=== PATIENT | female | born 1985 | race Caucasian/White ===

== ENCOUNTER 2019-04-21 20:30 | Emergency (ER) | payer OTHER ==
[~2019-04-21] VITALS: Ht 160 cm; Wt 72.6 kg
[~2019-04-21 20:30] MED LIST: AMOXICILLIN PO; BENTYL20 MG PO; CARAFATE1 GM/10 ML PO; IBUPROFEN 400400 M1; MYLANTA 12 OZ355 M1; NOHOMEMEDICATIONS; PRENATAL; PRENATAL PO; TESSALON PERLE100 MG; ZANTAC 150MG T150 M1
[2019-04-21 20:31] VITALS: BP 147/99
[2019-04-21] MEDS ORDERED: ZPAK PO (21:54)
[2019-04-21] MEDS ORDERED: TESSALON PERLE100 MG PO (21:54)
== END 2019-04-21 22:16 | disposition home or self-care (01) ==
LOC: ER 20:30
DX: J20.9 Acute bronchitis, unspecified (principal); J06.9 Acute upper respiratory infection, unspecified; Z88.5 Allergy status to narcotic agent

== ENCOUNTER 2020-03-17 21:14 | Emergency (ER) | payer OTHER ==
[~2020-03-17] VITALS: Ht 160 cm; Wt 81.7 kg
[~2020-03-17 21:14] MED LIST changes: +TESSALON PERLE100 MG PO; +ZPAK PO
[2020-03-17] MEDS ORDERED: METHOCARBAMOL500 M2 PO (22:00)
[2020-03-17] MEDS ORDERED: NAPROSYN500 MG PO (22:00)
[2020-03-17 22:24] VITALS: BP 105/73
== END 2020-03-17 22:26 | disposition home or self-care (01) ==
LOC: ER 21:14
DX: K12.1 Other forms of stomatitis (principal); H92.01 Otalgia, right ear; G44.209 Tension-type headache, unspecified, not intractable; Z88.6 Allergy status to analgesic agent